=== PATIENT | female | born 1965 | race Native Hawaiian/Other Pacific Islander ===

== ENCOUNTER 2023-12-24 06:47 | Emergency (ER) | payer OTHER ==
[~2023-12-24] VITALS: Ht 154.9 cm; Wt 99.1 kg
[2023-12-24 07:56] VITALS: TEMP 98.4
[2023-12-24] MEDS: PIPERACILLIN-TAZOB 3.375GM 100 ML IV ONE (08:30)
[2023-12-24] MEDS: MORPHINE SULFATE INJ 2 MG/ml SYRG IV ONE (09:15)
[2023-12-24] MEDS: cefTRIAXone 2GM/50ML D5W 50 ML IV ONE (09:16)
[2023-12-24] MEDS ORDERED: AUG875T PO (11:54)
[2023-12-24 12:54] VITALS: BP 117/81; PULSE 86; RESP 20; O2SAT 95
== END 2023-12-24 12:55 | disposition home or self-care (01) ==
LOC: ER 06:47
DX: H66.91 Otitis media, unspecified, right ear (principal)
CPT/HCPCS: 96365; 96368; 96375; 99285; J0696; J2270; J2543; 96366